=== PATIENT | female | born 1980 | race Caucasian/White ===

== ENCOUNTER 2016-12-19 16:51 | Emergency (ER) | payer SELFPAY ==
[~2016-12-19] VITALS: Ht 157.5 cm; Wt 73.0 kg
[2016-12-19] MEDS ORDERED: KETOROLAC 60MG/2ML VIAL IM STA (20:20)
[2016-12-20] MEDS ORDERED: HYDROCODONE/ACETAMINOPHEN 5/325MG TABLET PO STA (00:01)
[2016-12-20 00:08] VITALS: BP 124/73
== END 2016-12-20 00:01 | disposition home or self-care (01) ==
LOC: ER 21:28
DX: S52.125A Nondisplaced fracture of head of left radius, initial encounter for closed fracture (principal); W19.XXXA Unspecified fall, initial encounter; Y93.9 Activity, unspecified; Y92.9 Unspecified place or not applicable
CPT/HCPCS: 29125; 73080; 81025; 96372; 99284; J1885; Z7610; A4565